=== PATIENT | male | born 1975 | race Hispanic/Latino ===

== ENCOUNTER → 2016-04-22 | Outpatient (CLI) | payer BC | END | disposition home or self-care (01) | LOC: GMAM 14:56 | PROVIDERS: ATTEND Family Medicine | DX: R31.9 Hematuria, unspecified (principal); Z00.00 Encounter for general adult medical examination without abnormal findings ==

== ENCOUNTER → 2016-04-29 | Outpatient (CLI) | payer BC ==
--- NOTE | 2016-04-29 11:39 | CT ---
EXAM DESCRIPTION: Abdomen/Pelvis w/wo Contrast CLINICAL HISTORY: HEMATURIA COMPARISON: None. TECHNIQUE: CT of the abdomen and pelvis was performed before and after intravenous and ministration of 90 mL Optiray 320. Multiple axial images and multiplanar reconstructions were generated. FINDINGS: Lung bases: The visualized lung bases are clear. Solid organs: There is no hydronephrosis, hydroureter, or nephrolithiasis. No abnormal renal enhancement. Hepatomegaly with hepatic steatosis. The gallbladder, spleen, pancreas, and adrenal glands are unremarkable. Gastrointestinal: The stomach and small intestine are unremarkable. There is scattered colonic diverticulosis without CT evidence for diverticulitis. The appendix is normal. No free fluid or free air. Vascular: Unremarkable. Lymph nodes: No pathologically enlarged lymph nodes are present by CT size criteria. Musculoskeletal and soft tissues: No destructive osseous lesions are present. Tiny fat-containing right inguinal hernia. Urinary bladder and pelvic organs: The urinary bladder is normal. The prostate is normal in size. IMPRESSION: 1. No acute abdominal or pelvic CT findings. No CT findings to explain the patient's hematuria. 2. Hepatomegaly with hepatic steatosis. 3. Colonic diverticulosis. Electronically signed by: Shaheen Izquierdo MD 04/29/2016 11:38 AM CDT
== END | disposition home or self-care (01) ==
LOC: CT 08:53
PROVIDERS: ATTEND Family Medicine
DX: R31.9 Hematuria, unspecified (principal)

== ENCOUNTER 2016-12-10 14:51 | Emergency (ER) | payer BC, OTHER ==
--- NOTE | 2016-12-10 14:53 | ED.PDOC ---
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 Occurred: just prior to arrival Pain - Upper Extremity: severe: Hand, left Method of Injury: incised Improving Factors: nothing Worsening Factors: movement Allergies/Adverse Reactions: Allergies NO KNOWN ALLERGY Allergy (Verified 12/10/16 15:00) Home Medications: Ambulatory Orders Acetamin W/Cod #3 Tab [Tylenol w/CODEINE #3] 2 ea PO Q6HR #30 tab 12/10/16 Cephalexin 1,000 mg PO BID #30 cap 12/10/16 Review of Systems - Review of Systems Skin: States: see HPI All other Systems: Reviewed and Negative, No Change from Baseline Past Medical History (General) - Patient Medical History Hx Hypertension: Yes Family Medical History - Family History Father Family History: Unknown Living Status: Unknown Hx Family Hypertension: Yes - several family members Physical Exam - Physical Exam General Appearance: Alert, Anxious, No apparent distress Eyes, Ears, Nose, Throat Exam: PERRL/EOMI, normal ENT inspection Neck: supple Cardiovascular/Respiratory: regular rate, rhythm, normal peripheral pulses Abdominal Exam: non-tender, no organomegaly Back Exam: no vertebral tenderness Shoulder Exam: no evidence of injury Elbow/Forearm Exam: no evidence of injury Wrist Exam: no evidence of injury Hand Exam: normal ROM - complex injury with atotal avulsion pulp of distal phalanx left middle finger, laceration, nail injury Neuro/Tendon: normal tendon functions, responds to pain, other - right handed Mental Status: alert, oriented x 3 Skin Exam: normal color, warm/dry Progress - Progress Progress: 12/10/16 17:22 Vital Signs - 8 hr 12/10/16 14:56 Temperature 98.9 F Pulse Rate [ 78 Right Brachial] Respiratory 20 Rate Blood Pressure 185/100 [Right Arm] O2 Sat by Pulse 97 Oximetry Procedures - Laceration/Wound Repair Left Distal Finger Wound Length (cm): 4 - total avulsion skin/SQ/nail left 3rd digit distal phalanx Wound's Depth, Shape: irregular, nail-avulsed Wound Explored: vigorously cleanse with hibiclens Irrigated w/ Saline (cc's): 100 Betadine Prep?: No - hibiclens Anesthesia: 1% Lidocaine Volume Anesthetic (cc's): 10 - digital/metacarpal nerve block done Wound Debrided: avulsed skin volar aspect distal phalanx w/c was scraped of SQ layer was sutured back to the finger ;part of the amputated bone was trimmed then 5-0 vicryl suture was used to anchor the avuksed skin Wound Repaired With: sutures Suture Size/Type: 5:0, vicryl rapide Number of Sutures: 15 Layer Closure?: Yes Sterile Dressing Applied?: Yes Departure - Departure Clinical Impression: Avulsion fracture of distal phalanx of finger Qualifiers: Encounter type: initial encounter Fracture type: open Qualified Code(s): S62.639B - Displaced fracture of distal phalanx of unspecified finger, initial encounter for open fracture Time of Disposition: 17:35 Disposition: Discharge to Home or Self Care Condition: Good Departure Forms: ED Discharge - Pt. Copy, Patient Portal Self Enrollment Instructions: DI for Laceration Repair -- Finger Referrals: Jermaine Pepper MD [Primary Care Provider] - 1-2 Weeks Prescriptions: Acetamin W/Cod #3 Tab [Tylenol w/CODEINE #3] 2 ea PO Q6HR #30 tab Cephalexin 1,000 mg PO BID #30 cap Home Medications: Ambulatory Orders Acetamin W/Cod #3 Tab [Tylenol w/CODEINE #3] 2 ea PO Q6HR #30 tab 12/10/16 Cephalexin 1,000 mg PO BID #30 cap 12/10/16 Additional Instructions: NEED TO FOLLOW UP WITH CATHERINE GREY MD IN AM CALL FOR APPOINTMENT;RETURN TO EMERGENCY ROOM NEEDED;OFF WORK UNTIL RELEASED BY CATHERINE GREY MD
[2016-12-10] MEDS ORDERED: TETANUS,DIPHTHERIA,PERTUSSIS 1 EA SYG IM ONE (15:03)
[2016-12-10] MEDS ORDERED: ceFAZolin SODIUM 1 GM VIAL IM ONE (15:05)
[2016-12-10 15:14] VITALS: TEMP 98.9; O2SAT 97
[2016-12-10] MEDS ORDERED: CHLORHEXIDINE GLUCONATE 4 % 15 ML UD TOP ONE ×2 (15:21→15:56)
--- NOTE | 2016-12-10 15:34 | RAD ---
EXAM DESCRIPTION: Fingers,Left CLINICAL HISTORY: 41 years Male, partial amputation of finger COMPARISON: None. FINDINGS/impression: Three-view left third finger shows amputation of the tip of the finger at the level of the tuft of the distal phalanx which is mostly amputated. There is a small hyperdense V-shaped object in the volar soft tissues in the amputation defect that may represent foreign body within the soft tissues or on the surface of the skin possibly. Electronically signed by: Mati Hyde MD 12/10/2016 3:33 PM CDT
[2016-12-10] MEDS ORDERED: NEOMYCIN-BACITRACIN-POLYMYXIN 0.9 GM UD TOP ONE (15:35)
[2016-12-10] MEDS ORDERED: LIDOCAINE 1% 10 ML VIAL INJ ONE (15:35)
[2016-12-10] MEDS ORDERED: HYDROcodone 10MG/APAP 325MG 1 EA TAB PO ONE (17:42)
[2016-12-10 17:52] VITALS: BP 164/97
== END 2016-12-10 17:51 | disposition home or self-care (01) ==
LOC: ER 14:51
DX: S62.633B Displaced fracture of distal phalanx of left middle finger, initial encounter for open fracture (principal); S68.123A Partial traumatic metacarpophalangeal amputation of left middle finger, initial encounter; Z23 Encounter for immunization; W31.89XA Contact with other specified machinery, initial encounter; Y92.89 Other specified places as the place of occurrence of the external cause; Y99.0 Civilian activity done for income or pay
CPT/HCPCS: 73140; 80301; 90471; 90715; J0690

== ENCOUNTER → 2017-07-31 | Outpatient (CLI) | payer BC | LOC: GMAM 11:43 | PROVIDERS: ATTEND Family Medicine | DX: Z00.00 Encounter for general adult medical examination without abnormal findings (principal) ==

== ENCOUNTER → 2017-08-04 | Outpatient (CLI) | payer BC | LOC: GMAM 18:42 | PROVIDERS: ATTEND Family Medicine | DX: R94.5 Abnormal results of liver function studies (principal) ==

== ENCOUNTER 2018-03-08 14:45 | Emergency (ER) | payer OTHER ==
[2018-03-08 14:57] VITALS: TEMP 98.6; O2SAT 99
[2018-03-08] MEDS ORDERED: LIDOCAINE 1% W/ EPINEPHRINE 20 ML VIAL INJ ONE (15:14)
[2018-03-08] MEDS ORDERED: POVIDONE IODINE 10 % 15 ML UD TOP ONE (15:15)
--- NOTE | 2018-03-08 15:38 | ED.PDOC ---
History of Present Illness - General Chief Complaint: Trauma Stated Complaint: hit in head with a pipe Time Seen by Provider: 03/08/18 15:36 Source: patient Exam Limitations: no limitations - History of Present Illness Initial Comments: Patient presents from work with a laceration to his forehead. He says a pipe hit him. He did not fall down nor LOC. No N/V/dizziness/light-headedness. No paresthesias/vision changes/hearing changes. No other complaints. Last tetanus booster was last year. Timing/Duration: 1-3 hours Severity: mild Improving Factors: nothing Worsening Factors: nothing Associated Symptoms: denies symptoms Allergies/Adverse Reactions: Allergies NO KNOWN ALLERGY Allergy (Verified 12/10/16 15:00) Review of Systems - Review of Systems Constitutional: States: no symptoms reported EENTM: States: no symptoms reported Respiratory: States: no symptoms reported Cardiology: States: no symptoms reported Gastrointestinal/Abdominal: States: no symptoms reported Genitourinary: States: no symptoms reported Musculoskeletal: States: no symptoms reported Skin: States: see HPI Neurological: States: no symptoms reported Endocrine: States: no symptoms reported Hematologic/Lymphatic: States: no symptoms reported Past Medical History (General) - Patient Medical History Hx Congestive Heart Failure: No Hx Hypertension: Yes Hx Diabetes: No Surgical History: no surgical history - Vaccination History Hx Tetanus, Diphtheria Vaccination: Yes Hx Influenza Vaccination: No Hx Pneumococcal Vaccination: No Immunizations Up to Date: No - Social History Hx Tobacco Use: No Hx Alcohol Use: Yes - occ Hx Substance Use: No Hx Substance Use Treatment: No Family Medical History - Family History Father Family History: Unknown Living Status: Unknown Hx Family Hypertension: Yes - several family members Physical Exam - Physical Exam General Appearance: Alert Eye Exam: bilateral normal Ears, Nose, Throat: normal ENT inspection Neck: non-tender, full range of motion, supple Respiratory: lungs clear, normal breath sounds Cardiovascular/Chest: regular rate, rhythm Gastrointestinal/Abdominal: normal bowel sounds, non tender, soft 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 There is a 2 cm superficial vertical abrasion just below it. Progress - Progress Progress: 03/08/18 15:39 Area was prepped and draped in a sterile fashion. 3 cc of lidocaine with epinephrine was used to gain excellent local anesthesia. 4 interrupted sutures using 5-0 proline were placed and excellent wound edge opposition obtained. Area was clean, dry, and hemostatic upon completion. Patient tolerated procedure well. E.R. warnings given. Care instructions given. Questions were elicited and answered. The patient voiced understanding and agreement with the plan. - EKG/XRAY/CT CT Ordered: No CT Interpretation Call Back: No Departure - Departure Clinical Impression: Laceration Disposition: Discharge to Home or Self Care Condition: Good Departure Forms: ED Discharge - Pt. Copy, Patient Portal Self Enrollment Instructions: Laceration Repair With Stitches (DC) Diet: resume usual diet Activity: increase activity as tolerated Referrals: Jermaine Pepper MD [Primary Care Provider] - 1-2 Weeks Additional Instructions: Return to the E.R. or your regular doctor in 5-7 days for suture removal. Return to the E.R. for bleedin, pus, temperature over 100.3, nausea and vomiting, changes in vision or hearing, or numbness, weakness, or tingling in your arms or legs.
[2018-03-08 15:50] VITALS: BP 145/89
== END 2018-03-08 15:50 | disposition home or self-care (01) ==
LOC: ER 14:45 → EDSTATUS 14:46 → ER 15:50
DX: S01.01XA Laceration without foreign body of scalp, initial encounter (principal); I10 Essential (primary) hypertension; W22.8XXA Striking against or struck by other objects, initial encounter; Y99.0 Civilian activity done for income or pay; Y92.69 Other specified industrial and construction area as the place of occurrence of the external cause

== ENCOUNTER → 2018-09-21 | Outpatient (CLI) | payer BC | LOC: GMAM 10:54 | PROVIDERS: ATTEND Family Medicine | DX: Z12.5 Encounter for screening for malignant neoplasm of prostate (principal); E11.9 Type 2 diabetes mellitus without complications; I10 Essential (primary) hypertension ==